=== PATIENT | female | born 1950 | race Caucasian/White ===

== ENCOUNTER 2024-04-03 10:06 | Emergency (ER) | payer MEDICARE ==
[~2024-04-03] VITALS: Ht 160 cm; Wt 67.7 kg
[2024-04-03 10:17] VITALS: BP 136/69
[2024-04-03] MEDS ORDERED: HYDROCHLOROTH12.5 M2 PO (10:18)
[2024-04-03] MEDS ORDERED: AMLODIPINE BESY10 MG PO (10:18)
[2024-04-03] MEDS ORDERED: METOPROLOL TAR100 M1 PO (10:19)
[2024-04-03] MEDS ORDERED: LOSARTAN POTAS100 M1 PO (10:19)
[2024-04-03] MEDS ORDERED: ASPIRIN81 M1 PO (10:20)
[2024-04-03] MEDS ORDERED: SIMVASTATIN40 MG PO (10:20)
[2024-04-03] MEDS ORDERED: CLINDAMYCIN HCL 300 MG CAPSULE PO ONE (11:00)
[2024-04-03] MEDS ORDERED: VIBRAMYCIN100 MG PO (11:01)
[2024-04-03] MEDS ORDERED: CLEOCIN HCL300 MG PO (11:01)
[2024-04-03] MEDS ORDERED: Doxycycline Hyclate 100 MG CAP PO ONE (11:05)
== END 2024-04-03 11:13 | disposition home or self-care (01) ==
LOC: ED 10:06
DX: L02.01 Cutaneous abscess of face (principal); Z79.899 Other long term (current) drug therapy; Z98.890 Other specified postprocedural states; Z98.51 Tubal ligation status